=== PATIENT | male | born 1965 | race African-American/Black ===

== ENCOUNTER 2017-06-26 02:50 | Emergency (ER) | payer OTHER ==
[2017-06-26 03:00] VITALS: BP 114/76; BMI 31.6
--- NOTE | 2017-06-26 03:27 | RAD ---
Right foot, three views Indication: Crush injury to the foot Findings: No acute cortical disruption or malalignment identified. There is moderate-sized calcaneal enthesophyte at the plantar fascia attachment. No focal soft tissue abnormality. Impression: No evidence for acute osseous injury to the right foot. Calcaneal enthesopathy. Reported By:
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
[2017-06-26] MEDS ORDERED: TORADOL 60 MG VIAL IM ONE (04:10)
[2017-06-26] MEDS ORDERED: TORADOL 60 MG VIAL ONE (04:13)
== END 2017-06-26 04:18 | disposition home or self-care (01) ==
LOC: ER 02:50
DX: M77.31 Calcaneal spur, right foot (principal)
CPT/HCPCS: 73630; 96372; 99000; 99282; J1885